=== PATIENT | male | born 1995 | race African-American/Black ===

== ENCOUNTER 2016-11-03 14:09 | Emergency (ER) | payer OTHER ==
[2016-11-03 14:52] VITALS: TEMP 97.5; BMI 26.6
--- NOTE | 2016-11-03 15:11 | PDOC ---
History of Present Illness - General Chief Complaint: Seizure Stated Complaint: Seizure Time Seen by Provider: 11/03/16 14:20 History Source: Patient Exam Limitations: No Limitations - History of Present Illness Initial Comments: 11/03/16 15:00 21-year-old male with history of seizure disorder since age of 12 presents to the ED status post seizure activity today. Patient was sitting on the bus when bystanders said he started to shake have eye rolling and continued for approximately 2 minutes until he began to snore. By the time EMS arrived patient was alert and oriented 3 with no complaints. Patient states has been taking his Lamictal, Keppra, and zonisamide regularly but 3 days ago ran out of his zonisamide. Patient states called the pharmacy and states they do not have it at the time but for him to come pick it up the following day which he states he did not and found of bottle with 2 tablets in his house today so took one this morning stating he missed only 2 days of the medication. Patient seen by his neurologist every 2-3 months was offered to increase his medication dosing secondary to continual seizure activity but patient refuses stating he takes too much medication already. Timing/Duration: reports: episodic Severity: Yes: moderate Associated Symptoms: reports: seizures Past History - Past Medical History Allergies/Adverse Reactions: Allergies Allergy/AdvReac Type Severity Reaction Status Date / Time No Known Allergies Allergy Verified 11/03/16 14:52 Home Medications: Ambulatory Orders Lamotrigine [LaMICtal -] 300 mg PO BID 07/27/15 Levetiracetam [Keppra -] 2,000 mg PO BID 12/09/15 Zonisamide 100 mg PO DAILY 12/09/15 Asthma: Yes Suicide Attempt (Hx): No Seizures: Yes - Immunization History Immunization Up to Date: Yes - Psycho/Social/Smoking Cessation Hx Anxiety: No Suicidal Ideation: No Smoking Status: No Smoking History: Never smoked Have you smoked in the past 12 months: No Number of Cigarettes Smoked Daily: 0 Information on smoking cessation initiated: No Hx Alcohol Use: No Drug/Substance Use Hx: No Substance Use Type: None Patient Lives Alone: No Lives with/in: parents Review of Systems - Review of Systems Able to Perform ROS?: Yes Constitutional: No: Symptoms Reported HEENTM: No: Symptoms Reported Respiratory: No: Symptoms reported Cardiac (ROS): No: Symptoms Reported ABD/GI: No: Symptoms Reported : No: Symptoms Reported Musculoskeletal: No: Symptoms Reported Integumentary: No: Symptoms Reported Neurological: Yes: Seizure *Physical Exam - Vital Signs Last Vital Signs Temp Pulse Resp BP Pulse Ox 97.5 F L 93 H 18 117/70 100 11/03/16 14:09 11/03/16 14:09 11/03/16 14:09 11/03/16 14:09 11/03/16 14:09 - Physical Exam General Appearance: Yes: Nourished, Appropriately Dressed. No: Apparent Distress HEENT: positive: EOMI, MILLI. negative: Pale Conjunctivae Neck: positive: Supple. negative: Tender, Decreased range of motion Respiratory/Chest: positive: Lungs Clear, Normal Breath Sounds. negative: Respiratory Distress, Accessory Muscle Use Cardiovascular: positive: Regular Rhythm, Regular Rate. negative: Murmur Gastrointestinal/Abdominal: positive: Soft. negative: Tenderness Extremity: positive: Normal Capillary Refill Integumentary: positive: Normal Color, Warm, Moist Neurologic: positive: Normal Mood/Affect (ao x3 ), Motor Strength 5/5 ( ambulatory) Medical Decision Making - Medical Decision Making 11/03/16 15:14 Patient with history of seizure activity presents with status post seizure activity today. Patient states has not taken his zonasamide for the past 2 days since he ran out and has not received his medication from [facility] as of yet. Patient states otherwise takes his Keppra and Lamictal as recommended by his neurologist who has tried to increase his dose secondary to continual seizure activity occurring approximately 2-3 times a year. Patient presently is asymptomatic with normal vital signs mentating well. Patient states does have the funds for his co-pay of 39.13 which was told to me by the pharmacist at [facility] who states they do have the medication and now. Patient be discharged home to go directly to [facility] pharmacy upon discharge. *DC/Admit/Observation/Transfer Diagnosis at time of Disposition: Seizure Qualifiers: Convulsion type: unspecified Qualified Code(s): R56.9 - Unspecified convulsions - Discharge Dispostion Disposition: HOME Condition at time of disposition: Good - Patient Instructions Printed Discharge Instructions: DI for Seizure Disorder -- Adult Additional Instructions: Go directly to [facility] pharmacy to get your medications and take as directed until you follow up with your neurologist. Please eat well-balanced meals and stay well-hydrated.
[2016-11-03 16:02] VITALS: BP 122/78; PULSE 82
--- NOTE | 2016-11-03 16:35 | PDOC ---
*Physical Exam - Vital Signs Last Vital Signs Temp Pulse Resp BP Pulse Ox 97.5 F L 82 16 122/78 99 11/03/16 14:09 11/03/16 16:01 11/03/16 16:01 11/03/16 16:01 11/03/16 16:01 Medical Decision Making - Medical Decision Making 11/03/16 16:35 This is a 21 yo M who presents to the ER via EMS s/p seizure Pt has a history of seizure disorder, is currently taking 3 medications - Keppra , Lamictal, Zonisamide He ran out of Zonisamide Pharmacy unable to fill it While on bus he had a seizure, upon EMS arrival, pt no longer post ictal Labs not necessary No reported head trauma, will avoid CT Pt will need to resume his anti epileptics I agree with plan as outlined by Midlevel Provider *DC/Admit/Observation/Transfer Diagnosis at time of Disposition: Seizure Qualifiers: Convulsion type: unspecified Qualified Code(s): R56.9 - Unspecified convulsions - Discharge Dispostion Disposition: HOME Condition at time of disposition: Good - Referrals - Patient Instructions Printed Discharge Instructions: DI for Seizure Disorder -- Adult Additional Instructions: Go directly to [facility] pharmacy to get your medications and take as directed until you follow up with your neurologist. Please eat well-balanced meals and stay well-hydrated. - Post Discharge Activity
== END 2016-11-03 16:02 | disposition home or self-care (01) ==
LOC: JER 14:09
DX: G40.909 Epilepsy, unspecified, not intractable, without status epilepticus (principal)
CPT/HCPCS: 99283-25

== ENCOUNTER 2017-01-29 13:06 | Emergency (ER) | payer OTHER ==
[2017-01-29 13:24] VITALS: BMI 28.1
--- NOTE | 2017-01-29 13:25 | PDOC ---
History of Present Illness - General Chief Complaint: Seizure Stated Complaint: SEIZURE Time Seen by Provider: 01/29/17 13:22 History Source: Patient Exam Limitations: No Limitations - History of Present Illness Initial Comments: CHIEF COMPLAINT: 21 y/o afebrile male with PMH seizures here for a seizure. HISTORY OF PRESENT ILLNESS: The patient was getting ready for work when he had a witnessed seizure. The witness informs me that he slid down the wall and then his upper body began shaking for about 2 minutes. While shaking the patient was unresponsive to him. Once he stopped shaking the witness admits the patient "came to" and wanted to stand up. The patient does admit since he was rushing this morning he did not have a chance to take one of his seizure medications. He denies all complaints prior to and after the seizure including LOZANO, neck pain, dizziness, changes in vision/hearing, n/v/d, CP, SOB, abd pain, lip biting, bowel/bladder incontinence. Vital signs on arrival are within normal limits. REVIEW OF SYSTEMS: GENERAL/CONSTITUTIONAL: No fever/chills. No weakness. No weight change. HEAD, EYES, EARS, NOSE AND THROAT: No change in vision. No ear pain or discharge. No sore throat. CARDIOVASCULAR: No chest pain or shortness of breath. RESPIRATORY: No cough, wheezing, or hemoptysis. GASTROINTESTINAL: No abd pain, nausea, vomiting, diarrhea. GENITOURINARY: No dysuria, frequency, or change in urination. MUSCULOSKELETAL: No joint or muscle swelling or pain. No neck or back pain. SKIN: No rash or easy bruising. NEUROLOGIC: +seizure. No headache, vertigo, loss of consciousness, or loss of sensation. PHYSICAL EXAM: GENERAL: The patient is awake, alert, and fully oriented, in no acute distress. he is well appearing. HEAD: Normal with no signs of trauma. No hematomas. NECK: No midline cervical spine TTP or step offs. ENT: Pupils equal, round and reactive to light, extraocular movements intact, sclera anicteric, conjunctiva clear. No raccoon eyes. No bleeding from ears or nares. Small abrasions to inside of lower lip without active bleeding. No loose teeth. No tongue lacerations. LUNGS: Clear to auscultation bilaterally. Normal excursion. No respiratory distress or use of accessory muscles. CV: RRR, S1/S2, no MRG. Cap refill < 2 sec. ABDOMEN: Soft, non-distended, non-tender even to deep palpation, no hepatomegaly or splenomegaly, no masses. EXTREMITIES: Normal range of motion, no edema. NEUROLOGICAL: Normal speech, normal gait. CN II-XII grossly intact. PSYCH: Normal mood, normal affect. SKIN: Warm, dry, normal turgor, no rashes or lesions noted. Past History - Past Medical History Allergies/Adverse Reactions: Allergies Allergy/AdvReac Type Severity Reaction Status Date / Time No Known Allergies Allergy Verified 11/03/16 14:52 Home Medications: Ambulatory Orders Lamotrigine [LaMICtal -] 200 mg PO BID 07/27/15 Levetiracetam [Keppra -] 2,000 mg PO BID 12/09/15 Zonisamide 100 mg PO DAILY 12/09/15 Zonisamide [Zonegran] 100 mg PO BID 01/29/17 Asthma: Yes Suicide Attempt (Hx): No Seizures: Yes - Immunization History Immunization Up to Date: Yes - Psycho/Social/Smoking Cessation Hx Anxiety: No Suicidal Ideation: No Smoking Status: No Smoking History: Never smoked Have you smoked in the past 12 months: No Number of Cigarettes Smoked Daily: 0 Hx Alcohol Use: No Drug/Substance Use Hx: No Substance Use Type: None ED Treatment Course - LABORATORY CBC & Chemistry Diagram: 01/29/17 13:39 01/29/17 13:39 Medical Decision Making - Medical Decision Making A/P: 21 y/o afebrile male here after witnessed seizure. Plan is as follows: 1. Labs 2. Head CT Head CT IMPRESSION: No evidence of focal lesion or hemorrhage. Labs unremarkable. Discussed the case with Dr. Shankar who is in agreement with discharge to home. Instructed the patient to take all of his seizure medication as prescribed and return to the ER with any worsening or concerning symptoms. The patient verbalizes understanding of all instructions, has no further questions and is awaiting discharge. *DC/Admit/Observation/Transfer Diagnosis at time of Disposition: Seizure Qualifiers: Convulsion type: unspecified Qualified Code(s): R56.9 - Unspecified convulsions - Discharge Dispostion Disposition: HOME Condition at time of disposition: Good - Patient Instructions Printed Discharge Instructions: DI for Seizure Disorder -- Adult Additional Instructions: Discharge Instructions: -Take all seizure medications as prescribed -Follow up with your Neurologist as soon as possible -Return to the ER with any worsening or concerning symptoms - Post Discharge Activity Work/School Note: Back to Work
[2017-01-29 14:00] LABS: BASOPHIL 0.4 % (0-2.0); EOSINOPHIL 1.2 % (0-4.5); MCH 27.9 pg (25.7-33.7); MCHC 32.8 g/dl (32.0-35.9); MEAN CELL VOLUME 85.1 fl (80-96); MEAN PLT VOLUME 8.6 fl (7.5-11.1); NEUTROPHILS 69.8 % (42.8-82.8); PLATELET COUNT 167 K/MM3 (134-434); RDW 14.6 % (11.9-15.9); WHITE BLOOD COUNT 5.5 K/mm3 (4.0-10.0)
[2017-01-29 14:22] LABS: ALBUMIN 4.1 g/dl (3.4-5.0); ANION GAP 9 (8-16); BILIRUBIN,TOTAL 0.3 mg/dL (0.2-1.0); CALCIUM 8.9 mg/dL (8.5-10.1); CO2 30 mmol/L (21-32); COCKROFT - GAULT 110.56; CREATININE 1.2 mg/dL (0.7-1.3); GLUCOSE,RANDOM 85 mg/dL (74-106); SGOT/AST 19 U/L (15-37); SGPT/ALT 27 U/L (12-78); TOT PROT 6.8 g/dl (6.4-8.2)
[2017-01-29 14:23] LABS: ALK PHOS 50 U/L (45-117)
[2017-01-29 14:58] VITALS: BP 135/80; PULSE 62; TEMP 98.2
== END 2017-01-29 15:26 | disposition home or self-care (01) ==
LOC: JER 13:06
DX: G40.802 Other epilepsy, not intractable, without status epilepticus (principal)
CPT/HCPCS: 36415; 70450-TC; 80053; 85025; 99283-25